=== PATIENT | female | born 1980 | race Caucasian/White ===

== ENCOUNTER 2022-04-27 16:49 | Emergency (ER) | payer MEDICARE, MEDICAID, SELFPAY ==
[2022-04-27] VITALS (7 sets, daily range): BP systolic 96–138; BP diastolic 59–93; PULSE 75–122; RESP 16–19; TEMP 36.7; O2SAT 98–100; BMI 18.6
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
--- NOTE | 2022-04-27 17:39 | NURSING ---
Pt found with 3 empty bottles of klonopin (unsure of how many pills were in container), Sonata, Zoloft, and ZQuil- per .
--- NOTE | 2022-04-27 18:14 | EKG12_ITS ---
Test Reason : DYSRHYTHMIA Blood Pressure : / mmHG Vent. Rate : 109 BPM Atrial Rate : 109 BPM P-R Int : 116 ms QRS Dur : 066 ms QT Int : 354 ms P-R-T Axes : 070 044 033 degrees QTc Int : 476 ms Sinus tachycardia Otherwise normal ECG No previous ECGs available Confirmed by MARY GONZALES, TANGELA ([id number]), copy editor SHERIF JOLLY ([id number]) on 05/01/2022 9:32:08 AM Referred By: FRANKLIN Confirmed By:TANGELA HERNANDEZ MD
--- NOTE | 2022-04-27 18:36 | ED.RN ---
NO OLD EKG
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
[2022-04-27 18:58] LABS: Mucous, Urine 0 SEEN /hpf (<or=2+); Squamous Epithelial Cells - UA 0 SEEN /hpf (5-10); White Blood Cells 0 SEEN /hpf (0-5)
--- NOTE | 2022-04-27 19:12 | NURSING ---
Pt's Eddie called in to unit to confirm that pt had 2 0.5 mg bottles of klonopin empty, one filled 01/14/19 60 tablets, one filled 04/07/22 90 tablets. Also had empty bottle of 1 mg tablets klonopin filled 11/29/2017, unknown quantity. Also had empty bottle zaleplon (Sonata) quantity of 60 capsules, filled 04/09/22. In addition, there was an empty bottle of ZQuil.
[2022-04-27 19:14] LABS: Amphetamine Urine VISTA NEGATIVE (<1000 ng/mL); Barbiturate Urine VISTA NEGATIVE (< 200 ng/mL); Benzodiazepine Urine VISTA POSITIVE (< 200 ng/mL); Cocaine Urine VISTA NEGATIVE (< 300 ng/mL); Ecstacy Urine VISTA NEGATIVE (< 500 ng/mL); Methadone Urine VISTA NEGATIVE (< 300 ng/mL); PCP Urine VISTA NEGATIVE (< 25 ng/mL); THC Urine VISTA NEGATIVE (< 50 ng/mL); Vista UDS pH Range 5
[2022-04-27 19:24] LABS: Absolute Lymphocyte Count 1.42 X10^3/uL (0.83-4.51); Absolute Neutrophil Count 5.5 X10^3/uL (2.0-7.7); Basophil# 0.04 X10^3/uL; Basophil% 0.5 % (0-1); Hematocrit 44.2 % (37-47); Lymphocyte # 1.42 X10^3/ul (0.83-4.51); Lymphocyte % 18.8 % (19-41); Mean Corp Hgb Conc 33.9 g/dL (32-36); Mean Corpuscular Hgb 29.9 pg (27.0-32.0); Mean Platelet Vol. 10.4 fl (6.2-12.0); Monocyte# 0.62 X10^3/uL; Monocyte% 8.2 % (0-10); NRBC Flagged by Analyzer 0 % (0-5); Neutrophil # 5.46 X10^3/uL (2.7-7.7); Neutrophil % 72.1 % (47-70); Platelet Count 321 K/mm3 (150-450); RBC Distribution Width CV 12.2 % (11.6-14.6); RBC Distribution Width SD 39.5 fl (35.1-43.9); Red Blood Count 5.02 M/mm3 (4.2-5.4); White Blood Count 7.6 K/mm3 (4.4-11.0)
[2022-04-27 19:32] LABS: ALB/GLOB Ratio 1.2 RATIO (0.9-2.4); AST(SGOT) 13 U/L (15-37); Alanine Aminotransfer ALT/SGPT 25 U/L (13-56); Albumin, Serum 4.8 g/dL (3.2-5.0); Alkaline Phosphatase 50 U/L (45-117); Anion Gap 7 (5-15); BUN 7 mg/dL (7-18); BUN/Creat Ratio 8.1 RATIO (10-20); Calcium,Total 9.7 mg/dL (8.5-10.1); Chloride 107 mmol/L (98-107); Creatinine, Serum 0.86 mg/dL (0.55-1.02); EST Glomerular Filtration Rate 77 mL/min (>60); Est Glom Filt Rate - Afr Amer 93 mL/min (>60); Estimated Creatinine Clearance 68.34 ml/min; Glucose 100 mg/dL (74-106); Potassium 4.2 mmol/L (3.5-5.1); Protein, Total 8.8 g/dL (6.4-8.2); Sodium Level 140 mmol/L (136-145)
[2022-04-27 19:33] LABS: Internal QC Validated? YES +Cl - CLEAR BKGD; Pregnancy, Serum, hCG Quali. NEGATIVE Negative
[2022-04-27 20:33] LABS: Acetaminophen (Tylenol) Level < 2.0 ug/mL (10.0-30.0); Alcohol, Blood (Medical)-Serum < 3.0 mg/dL; Salicylate 2.4 mg/dL (2.8-20.0)
[2022-04-27 21:53] LABS: Color, Urine Straw (Yellow); Glucose, Dipstick Normal (Normal); Ketone-Dipstick Negative (Negative); Leukocyte Esterase-Dipstick Negative /ul (Negative); Nitrite-Dipstick Negative (Negative); Occult Blood-Urine 150 /ul (Negative); Protein-Dipstick Negative (Negative); Urine Bilirubin Dipstick Negative (Negative); Urine Clarity Clear (Clear); Urine Urobilinogen Normal (Normal)
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
[2022-04-27 22:01] LABS: Bacteria 1+ /hpf (None Seen); Red Blood Cells-Urine 5-10 SEEN /hpf (0-5); Transitional Epithelial - Ur 0-5 SEEN /hpf (0-5)
--- NOTE | 2022-04-27 22:01 | ED.RN ---
[facility] updated [facility]. They will be in to evaluate pt in person.
--- NOTE | 2022-04-27 22:42 | ED.RN ---
[facility] HERE TO SEE PATIENT AT THIS TIME
[2022-04-28] VITALS (8 sets, daily range): BP systolic 102–114; BP diastolic 63–87; PULSE 86–106; RESP 14–22; O2SAT 98–100
--- NOTE | 2022-04-28 00:57 | ED.RN ---
pt c/o not being able to void, bladder scanned for >950, pt got up to use the restroom and was able to push out about 150ml w difficulty
--- NOTE | 2022-04-28 01:16 | ED.RN ---
pt st cathed for 650ml
--- NOTE | 2022-04-28 01:17 | ED.RN ---
PATIENT PENDING AT [facility] AT THIS TIME
--- NOTE | 2022-04-28 04:09 | ED.RN ---
Information faxed to [facility].
--- NOTE | 2022-04-28 06:13 | ED.RN ---
Accepting information for [facility] received from [facility].
--- NOTE | 2022-04-28 06:29 | ED.RN ---
[facility] CALLED FOR TRANSPORT ETA 90- 2 HR
--- NOTE | 2022-04-28 09:48 | CM.ED ---
Late Entry for 04/27/22 When social services aide left patient was not medically cleared. SW updated nutrition services worker that patient was not medically cleared at this time. SW spoke to shirt finisher who was advised crisis was updated that patient is currently not medically cleared. Plan: Psychiatric evaluation when medically cleared. Emerald AYALA
--- NOTE | 2022-04-28 15:27 | CM.ED ---
SW received call from patient's , Eddie, who inquired about patient's status and placement. SW reviewed chart and noted that she went to [facility] and provided him with the phone number. SW reviewed [place] pink slip rules and also discussed that voluntary means that patient is agreeing to work with the recommendations of the MD regarding discharge. Eddie voiced he worked in mental health for 10 years. Eddie voiced he had no other issues or concerns at this time. Emerald AYALA
== END 2022-04-28 10:06 ==
PROVIDERS: Emergency Provider Emergency Medicine; Visit Provider Emergency Medicine
DX: T42.4X2A Poisoning by benzodiazepines, intentional self-harm, initial encounter (principal); T50.992A Poisoning by other drugs, medicaments and biological substances, intentional self-harm, initial encounter; R00.0 Tachycardia, unspecified; R45.851 Suicidal ideations; F32.A Depression, unspecified; R35.0 Frequency of micturition; G47.00 Insomnia, unspecified; F32.9 Major depressive disorder, single episode, unspecified; F41.9 Anxiety disorder, unspecified
CPT/HCPCS: 80053; 80307; 80329; 81001; 82077; 84703; 85025; 87811; 93005; 99285; P9612; G0480